=== PATIENT | female | born 1945 | race Hispanic/Latino ===

== ENCOUNTER 2019-12-06 16:57 | Emergency (ER) | payer MEDICARE ==
[~2019-12-06] VITALS: Ht 160 cm; Wt 63.5 kg
[~2019-12-06 16:57] MED LIST: BINOSTO70 MG; FENOFIBRATE134 MG; LOSARTAN POTAS100 MG; METFORMIN HCL500 MG; PRAVASTATIN SOD40 MG; TIROSINT75 MCG
[2019-12-06] MEDS ORDERED: ACETAMINOPHEN 325 MG TAB PO ONE (18:30)
[2019-12-06] MEDS ORDERED: ACETAMINOPHEN 325 MG TAB ONE (18:51)
--- NOTE | 2019-12-06 19:23 | Diagnostic Imaging Report ---
HIP 2VW LT W/PELVIS - HOPD - Multiple views HISTORY: ^FALL LEFT HIP PAIN ^[id number] ^[id number] COMPARISON: None available. FINDINGS: Bones: No acute displaced fracture. Osseous alignment is within normal limits. Joints: Degenerative changes are seen in the spine. Soft tissues: The soft tissues appear unremarkable. IMPRESSION: No acute radiographic abnormality. No fracture. Signed by: uEgene Chandler MD on 12/06/2019 7:21 PM
== END 2019-12-06 20:05 | disposition home or self-care (01) ==
LOC: FSED 16:57
DX: S70.02XA Contusion of left hip, initial encounter (principal); W01.198A Fall on same level from slipping, tripping and stumbling with subsequent striking against other object, initial encounter; Y93.E1 Activity, personal bathing and showering; Y92.002 Bathroom of unspecified non-institutional (private) residence as the place of occurrence of the external cause; I10 Essential (primary) hypertension; E11.65 Type 2 diabetes mellitus with hyperglycemia; Z79.84 Long term (current) use of oral hypoglycemic drugs
CPT/HCPCS: 99283

== ENCOUNTER 2020-10-09 01:19 | Inpatient (IN) | payer MEDICARE ==
[~2020-10-09] VITALS: Ht 149.9 cm; Wt 65.8 kg
[2020-10-09] MEDS ORDERED: ACETAMINOPHEN 325 MG TAB PO STA (01:27)
[2020-10-09] MEDS ORDERED: ACETAMINOPHEN 325 MG TAB ONE (01:40)
[2020-10-09] MEDS ORDERED: AZITHROMYCIN 500MG/NS 250 ML 250 ML IV STA (01:50)
[2020-10-09] MEDS ORDERED: DEXAMETHASONE 10MG/ML PF INJ IV STA (01:50)
[2020-10-09 02:16] LABS: BASOPHILS % 0.3 % (0.0-1.0); HEMATOCRIT 33.9 % (34.2-44.1); HEMOGLOBIN 11.2 g/dL (12.0-16.0); LYMPHOCYTES # (AUTO) 0.6 (1.0-3.2); LYMPHOCYTES % 15.5 % (18.0-39.1); MEAN CORPUSCULAR HEMOGLOBIN 27.6 pg (28-32); MEAN CORPUSCULAR VOLUME 83.5 fL (81-99); MONOCYTES # (AUTO) 0.3 (0.2-0.8); MONOCYTES % 6.8 % (4.4-11.3); NEUTROPHILS # (AUTO) 2.8 (2.1-6.9); NEUTROPHILS % 76.9 % (38.7-80.0); PLATELET COUNT 173 x10e3/uL (140-360); RED BLOOD COUNT 4.06 x10e6/uL (3.6-5.1); RED CELL DISTRIBUTION WIDTH 14.1 % (11.7-14.4)
[2020-10-09 02:33] LABS: ALANINE AMINOTRANSFERASE 29 IU/L (0-55); ALBUMIN 3.6 g/dL (3.5-5.0); ALBUMIN/GLOBULIN RATIO 1.2 (0.8-2.0); ALKALINE PHOSPHATASE 56 IU/L (40-150); ANION GAP 14.1 mmol/L (8-16); BLOOD UREA NITROGEN 8 mg/dL (7-26); BUN/CREATININE RATIO 12 (6-25); CALCIUM 8.8 mg/dL (8.4-10.2); CARBON DIOXIDE 23 mmol/L (22-29); CHLORIDE 103 mmol/L (98-107); CREATININE, SERUM 0.65 mg/dL (0.57-1.11); EST GLOMERULAR FILTRATION RATE > 60 ML/MIN (60-); GLUCOSE 151 mg/dL (74-118); POTASSIUM 4.1 mmol/L (3.5-5.1); SODIUM 136 mmol/L (136-145)
[2020-10-09 02:36] LABS: CREATINE KINASE 240 IU/L (29-168)
[2020-10-09] MEDS ORDERED: DEXTROSE 50% SYRINGE 50 ML IV PRN (08:00)
[2020-10-09] MEDS: ZINC SULFATE 220 MG CAP PO SCH (08:58)
[2020-10-09] MEDS: CEFTRIAXONE SOD 1 GM/NS 50 ML 50 ML IV SCH (08:58)
[2020-10-09] MEDS: DEXAMETHASONE SOD PHOS INJ 4 MG/ML VIAL IV SCH (08:58)
[2020-10-09] MEDS: CHOLECALCIFEROL 1,000 UNIT TAB PO SCH (08:58)
[2020-10-09] MEDS: LEVOTHYROXINE SODIUM 75 MCG TAB PO SCH (08:58)
[2020-10-09] MEDS: MAGNESIUM OXIDE 400 MG TAB PO SCH (08:58)
[2020-10-09] MEDS: ASCORBIC ACID 500 MG TAB PO SCH ×2 (08:58→18:52)
[2020-10-09] MEDS: ENOXAPARIN 30 MG/0.3 ML SYR SC SCH ×2 (08:58→21:08)
[2020-10-09] MEDS ORDERED: ALBUTEROL SULFATE HFA 8GM INHALATION AEROSOL INH PRN (09:00)
[2020-10-09] MEDS ORDERED: ACETAMINOPHEN 325 MG TAB PO PRN (09:00)
[2020-10-09] MEDS ORDERED: GUAIFENESIN/CODEINE 10 ML CUP PO PRN (09:00)
[2020-10-09] MEDS ORDERED: ONDANSETRON HCL 4 MG ORAL DISINTEGRATING TAB PO PRN (09:00)
[2020-10-09] MEDS ORDERED: REMDESIVIR 200MG/NS 100ML 200 MG in SODIUM CHLORIDE 0.9% 100 ML 100 ML IV ONE (10:00)
[2020-10-09] MEDS: AZITHROMYCIN 250MG/NS 100 ML 100 ML IV SCH (10:10)
[2020-10-09 11:13] LABS: CREATINE KINASE MB 2.5 ng/mL (0-5.0)
[2020-10-09] MEDS: INSULIN LISPRO 100 UNIT/1 ML 3ML VIAL SQ SCH ×3 (12:38→21:08)
[2020-10-09 17:00] VITALS: BP 128/69
[2020-10-09 19:17] LABS: CREATINE KINASE 355 IU/L (29-168)
[2020-10-09 19:38] VITALS: BP 143/72
[2020-10-09] MEDS ORDERED: ENALAPRIL MALEA20 MG (20:03)
[2020-10-09] MEDS ORDERED: GABAPENTIN100 MG PO (20:03)
[2020-10-09] MEDS ORDERED: NEXIUM40 MG PO (20:03)
[2020-10-09] MEDS ORDERED: ACTOS30 MG PO (20:03)
[2020-10-09] MEDS ORDERED: AMLODIPINE BESYL5 MG PO (20:03)
[2020-10-09] MEDS ORDERED: METFORMIN HCL500 MG PO (20:04)
[2020-10-09 21:44] VITALS: BP 143/72
[2020-10-10] VITALS (9 sets, daily range): BP systolic 123–141; BP diastolic 64–91
[2020-10-10] MEDS: GUAIFENESIN/CODEINE 10 ML CUP PO PRN (00:18)
[2020-10-10] MEDS: LEVOTHYROXINE SODIUM 75 MCG TAB PO SCH (05:08)
[2020-10-10 05:33] LABS: BASOPHILS % 0.2 % (0.0-1.0); HEMATOCRIT 34.6 % (34.2-44.1); HEMOGLOBIN 11.4 g/dL (12.0-16.0); LYMPHOCYTES # (AUTO) 0.8 (1.0-3.2); LYMPHOCYTES % 13.7 % (18.0-39.1); MEAN CORPUSCULAR HEMOGLOBIN 27.5 pg (28-32); MEAN CORPUSCULAR HGB CONC 32.9 g/dL (31-35); MEAN CORPUSCULAR VOLUME 83.4 fL (81-99); MONOCYTES # (AUTO) 0.5 (0.2-0.8); MONOCYTES % 7.8 % (4.4-11.3); NEUTROPHILS # (AUTO) 4.5 (2.1-6.9); NEUTROPHILS % 77.6 % (38.7-80.0); PLATELET COUNT 233 x10e3/uL (140-360); RED BLOOD COUNT 4.15 x10e6/uL (3.6-5.1)
[2020-10-10 05:52] LABS: ALANINE AMINOTRANSFERASE 26 IU/L (0-55); ALBUMIN 3.4 g/dL (3.5-5.0); ALBUMIN/GLOBULIN RATIO 0.9 (0.8-2.0); ALKALINE PHOSPHATASE 52 IU/L (40-150); ANION GAP 13.8 mmol/L (8-16); BLOOD UREA NITROGEN 16 mg/dL (7-26); BUN/CREATININE RATIO 23 (6-25); CALCIUM 9.2 mg/dL (8.4-10.2); CARBON DIOXIDE 24 mmol/L (22-29); CHLORIDE 104 mmol/L (98-107); CREATININE, SERUM 0.71 mg/dL (0.57-1.11); EST GLOMERULAR FILTRATION RATE > 60 ML/MIN (60-); GLUCOSE 299 mg/dL (74-118); POTASSIUM 3.8 mmol/L (3.5-5.1); SODIUM 138 mmol/L (136-145)
[2020-10-10 06:33] LABS: PHOSPHORUS 2.7 MG/DL (2.3-4.7)
[2020-10-10 06:54] LABS: THYROID STIMULATING HORMONE 1.555 uIU/mL (0.350-4.940)
[2020-10-10] MEDS: CEFTRIAXONE SOD 1 GM/NS 50 ML 50 ML IV SCH (08:43)
[2020-10-10] MEDS: ASCORBIC ACID 500 MG TAB PO SCH ×2 (08:44→16:13)
[2020-10-10] MEDS: MAGNESIUM OXIDE 400 MG TAB PO SCH (08:44)
[2020-10-10] MEDS: DEXAMETHASONE SOD PHOS INJ 4 MG/ML VIAL IV SCH (08:44)
[2020-10-10] MEDS: AZITHROMYCIN 250MG/NS 100 ML 100 ML IV SCH (08:44)
[2020-10-10] MEDS: CHOLECALCIFEROL 1,000 UNIT TAB PO SCH (08:44)
[2020-10-10] MEDS: ENOXAPARIN 30 MG/0.3 ML SYR SC SCH ×2 (08:45→21:02)
[2020-10-10] MEDS: ZINC SULFATE 220 MG CAP PO SCH (08:45)
[2020-10-10] MEDS: INSULIN LISPRO 100 UNIT/1 ML 3ML VIAL SQ SCH ×4 (08:46→21:33)
[2020-10-10] MEDS ORDERED: SODIUM CHLORIDE 0.9% 250ML 250 ML ONE (12:48)
[2020-10-10] MEDS: REMDESIVIR 100MG/NS 100ML 100 MG IV SCH (14:26)
[2020-10-10] MEDS: BENZONATATE 100 MG CAP PO PRN (21:27)
[2020-10-11] VITALS (8 sets, daily range): BP systolic 131–147; BP diastolic 59–84
[2020-10-11] MEDS: CEFTRIAXONE SOD 1 GM/NS 50 ML 50 ML IV SCH (08:15)
[2020-10-11] MEDS: DEXAMETHASONE SOD PHOS INJ 4 MG/ML VIAL IV SCH (08:15)
[2020-10-11] MEDS: CHOLECALCIFEROL 1,000 UNIT TAB PO SCH (08:16)
[2020-10-11] MEDS: ASCORBIC ACID 500 MG TAB PO SCH ×2 (08:16→17:33)
[2020-10-11] MEDS: ZINC SULFATE 220 MG CAP PO SCH (08:16)
[2020-10-11] MEDS: ENOXAPARIN 30 MG/0.3 ML SYR SC SCH ×2 (08:16→21:05)
[2020-10-11] MEDS: MAGNESIUM OXIDE 400 MG TAB PO SCH (08:16)
[2020-10-11] MEDS ORDERED: MAGNESIUM HYDROXIDE 30 ML UDC PO PRN (08:30)
[2020-10-11] MEDS ORDERED: SENNA-S TABLET PO PRN (08:30)
[2020-10-11] MEDS ORDERED: ONDANSETRON HCL INJ 2MG/ML 2ML 2 MG/ML VIAL IV PRN (08:30)
[2020-10-11] MEDS: INSULIN LISPRO 100 UNIT/1 ML 3ML VIAL SQ SCH ×4 (08:40→21:51)
[2020-10-11] MEDS ORDERED: INSULIN GLARGINE 100 UNITS/ML VIAL SQ ONE (09:00)
[2020-10-11] MEDS: ACETAMINOPHEN 325 MG TAB PO PRN (11:15)
[2020-10-11] MEDS: AZITHROMYCIN 250MG/NS 100 ML 100 ML IV SCH (11:40)
[2020-10-11] MEDS: REMDESIVIR 100MG/NS 100ML 100 MG IV SCH (14:33)
[2020-10-11] MEDS: LEVOTHYROXINE SODIUM 75 MCG TAB PO SCH (21:06)
[2020-10-11] MEDS: GUAIFENESIN/CODEINE 10 ML CUP PO PRN (21:06)
[2020-10-12] VITALS (8 sets, daily range): BP systolic 137–154; BP diastolic 64–73
[2020-10-12 05:12] LABS: BASOPHILS % 0.3 % (0.0-1.0); HEMATOCRIT 34.4 % (34.2-44.1); HEMOGLOBIN 11.5 g/dL (12.0-16.0); LYMPHOCYTES # (AUTO) 1.1 (1.0-3.2); LYMPHOCYTES % 16.4 % (18.0-39.1); MEAN CORPUSCULAR HEMOGLOBIN 27.8 pg (28-32); MEAN CORPUSCULAR HGB CONC 33.4 g/dL (31-35); MEAN CORPUSCULAR VOLUME 83.3 fL (81-99); MONOCYTES # (AUTO) 0.6 (0.2-0.8); MONOCYTES % 8.2 % (4.4-11.3); NEUTROPHILS # (AUTO) 4.7 (2.1-6.9); NEUTROPHILS % 69.1 % (38.7-80.0); PLATELET COUNT 302 x10e3/uL (140-360); RED BLOOD COUNT 4.13 x10e6/uL (3.6-5.1); RED CELL DISTRIBUTION WIDTH 13.6 % (11.7-14.4)
[2020-10-12 05:35] LABS: ANION GAP 13.5 mmol/L (8-16); BLOOD UREA NITROGEN 14 mg/dL (7-26); BUN/CREATININE RATIO 22 (6-25); CALCIUM 8.9 mg/dL (8.4-10.2); CARBON DIOXIDE 24 mmol/L (22-29); CHLORIDE 106 mmol/L (98-107); CREATININE, SERUM 0.65 mg/dL (0.57-1.11); EST GLOMERULAR FILTRATION RATE > 60 ML/MIN (60-); GLUCOSE 155 mg/dL (74-118); POTASSIUM 3.5 mmol/L (3.5-5.1); SODIUM 140 mmol/L (136-145)
[2020-10-12] MEDS: INSULIN GLARGINE 100 UNITS/ML VIAL SQ SCH (06:00)
[2020-10-12] MEDS: INSULIN LISPRO 100 UNIT/1 ML 3ML VIAL SQ SCH ×4 (07:30→21:42)
[2020-10-12] MEDS: CEFTRIAXONE SOD 1 GM/NS 50 ML 50 ML IV SCH (08:12)
[2020-10-12] MEDS: ENOXAPARIN 30 MG/0.3 ML SYR SC SCH (08:13)
[2020-10-12] MEDS: CHOLECALCIFEROL 1,000 UNIT TAB PO SCH (08:13)
[2020-10-12] MEDS: ZINC SULFATE 220 MG CAP PO SCH (08:13)
[2020-10-12] MEDS: AZITHROMYCIN 250MG/NS 100 ML 100 ML IV SCH (08:13)
[2020-10-12] MEDS: ASCORBIC ACID 500 MG TAB PO SCH ×2 (08:13→16:57)
[2020-10-12] MEDS: MAGNESIUM OXIDE 400 MG TAB PO SCH (08:13)
[2020-10-12] MEDS: DEXAMETHASONE SOD PHOS INJ 4 MG/ML VIAL IV SCH (08:13)
[2020-10-12] MEDS: ACETAMINOPHEN 325 MG TAB PO PRN (10:12)
[2020-10-12] MEDS: REMDESIVIR 100MG/NS 100ML 100 MG IV SCH (14:28)
[2020-10-12] MEDS: APIXAB 2.5 MG TABLET PO SCH (16:57)
[2020-10-12] MEDS: LEVOTHYROXINE SODIUM 75 MCG TAB PO SCH (19:52)
[2020-10-12] MEDS: BENZONATATE 100 MG CAP PO PRN (20:55)
[2020-10-12] MEDS: GUAIFENESIN/CODEINE 10 ML CUP PO PRN (20:55)
[2020-10-13] VITALS: BP 142/63
[2020-10-13 04:00] VITALS: BP 136/76
[2020-10-13] MEDS: LEVOTHYROXINE SODIUM 75 MCG TAB PO SCH (05:26)
[2020-10-13] MEDS: INSULIN GLARGINE 100 UNITS/ML VIAL SQ SCH (05:27)
[2020-10-13 05:46] LABS: BASOPHILS % 0.6 % (0.0-1.0); HEMATOCRIT 35.5 % (34.2-44.1); HEMOGLOBIN 11.7 g/dL (12.0-16.0); LYMPHOCYTES # (AUTO) 1.3 (1.0-3.2); LYMPHOCYTES % 17.6 % (18.0-39.1); MEAN CORPUSCULAR HEMOGLOBIN 27.6 pg (28-32); MEAN CORPUSCULAR VOLUME 83.7 fL (81-99); MONOCYTES # (AUTO) 0.6 (0.2-0.8); MONOCYTES % 8.1 % (4.4-11.3); NEUTROPHILS # (AUTO) 4.6 (2.1-6.9); NEUTROPHILS % 64.6 % (38.7-80.0); PLATELET COUNT 306 x10e3/uL (140-360); RED BLOOD COUNT 4.24 x10e6/uL (3.6-5.1); RED CELL DISTRIBUTION WIDTH 13.6 % (11.7-14.4)
[2020-10-13 06:19] LABS: ANION GAP 11.5 mmol/L (8-16); BLOOD UREA NITROGEN 14 mg/dL (7-26); BUN/CREATININE RATIO 22 (6-25); CALCIUM 8.5 mg/dL (8.4-10.2); CARBON DIOXIDE 25 mmol/L (22-29); CHLORIDE 105 mmol/L (98-107); CREATININE, SERUM 0.63 mg/dL (0.57-1.11); EST GLOMERULAR FILTRATION RATE > 60 ML/MIN (60-); GLUCOSE 158 mg/dL (74-118); POTASSIUM 3.5 mmol/L (3.5-5.1); SODIUM 138 mmol/L (136-145)
[2020-10-13 08:17] VITALS: BP 126/63
[2020-10-13 08:35] LABS: BAND NEUTROPHILS % (MANUAL) 1 %; LYMPHOCYTES % (MANUAL) 18 % (19-48); MONOCYTES % (MANUAL) 6 % (3.4-9.0); NEUTROPHILS % (MANUAL) 72 % (40-74); PROMYELOCYTES % (MANUAL) 3 % (0-0)
[2020-10-13 08:36] LABS: PLATELET ESTIMATE ADEQUATE; RBC MORPHOLOGY COMMENT NORMAL
[2020-10-13 08:37] LABS: PLATELET MORPHOLOGY COMMENT FEW LARGE
[2020-10-13] MEDS: ASCORBIC ACID 500 MG TAB PO SCH (08:40)
[2020-10-13] MEDS: MAGNESIUM OXIDE 400 MG TAB PO SCH (08:40)
[2020-10-13] MEDS: APIXAB 2.5 MG TABLET PO SCH (08:40)
[2020-10-13] MEDS: ZINC SULFATE 220 MG CAP PO SCH (08:40)
[2020-10-13] MEDS: CHOLECALCIFEROL 1,000 UNIT TAB PO SCH (08:40)
[2020-10-13] MEDS: CEFTRIAXONE SOD 1 GM/NS 50 ML 50 ML IV SCH (08:40)
[2020-10-13] MEDS: INSULIN LISPRO 100 UNIT/1 ML 3ML VIAL SQ SCH ×2 (08:42→12:19)
[2020-10-13 08:50] VITALS: BP 126/63
[2020-10-13] MEDS ORDERED: AZITHROMYCIN 250 MG TAB PO SCH (09:00)
[2020-10-13 11:48] VITALS: BP 150/72
[2020-10-13] MEDS ORDERED: DEXAMETHASONE 4 MG TAB PO SCH (17:00)
== END 2020-10-13 14:06 | disposition home or self-care (01) | DRG 177 ==
LOC: ER 01:23 → ERHOLD 02:41 → MED/SURG2 15:48
PROVIDERS: ADMIT Internal Medicine; ATTEND Internal Medicine
PROC: XW033E5 Introduction of Remdesivir Anti-infective into Peripheral Vein, Percutaneous Approach, New Technology Group 5 (ICD-10-PCS; principal; 2020-10-09)
PROC: 3E0333Z Introduction of Anti-inflammatory into Peripheral Vein, Percutaneous Approach (ICD-10-PCS; 2020-10-09)
DX: U07.1 COVID-19 (principal); J12.82 Pneumonia due to coronavirus disease 2019; I10 Essential (primary) hypertension; E11.9 Type 2 diabetes mellitus without complications; R09.02 Hypoxemia; E03.9 Hypothyroidism, unspecified; E66.9 Obesity, unspecified; R06.03 Acute respiratory distress; Z68.29 Body mass index [BMI] 29.0-29.9, adult; Z79.84 Long term (current) use of oral hypoglycemic drugs
CPT/HCPCS: 36415; 71045; 80048; 80053; 82550; 82553; 82607; 82746; 82948; 83036; 83880; 84100; 84443; 84484; 85025; 93306; 97139; 99251; 99284; J0456; J0696; J1100; J1650; J7050; U0002

== ENCOUNTER 2024-05-08 13:31 | Emergency (ER) | payer MEDICARE ==
[~2024-05-08] VITALS: Ht 149.9 cm; Wt 69.5 kg
[~2024-05-08 13:31] MED LIST changes: +ACTOS30 MG PO; +AMLODIPINE BESYL5 MG PO; +ENALAPRIL MALEA20 MG; +GABAPENTIN100 MG PO; +METFORMIN HCL500 MG PO; +NEXIUM40 MG PO
[2024-05-08] MEDS ORDERED: FEROSUL325 MG PO (13:51)
[2024-05-08] MEDS ORDERED: NATEGLINIDE60 MG (13:51)
[2024-05-08] MEDS ORDERED: ATORVASTATIN CA20 MG PO (13:51)
[2024-05-08] MEDS ORDERED: BENICAR20 MG PO (13:51)
[2024-05-08] MEDS ORDERED: ASPIRIN EC81 MG PO (13:59)
[2024-05-08] MEDS: ACETAMINOPHEN 325 MG TAB PO ONE (16:12)
[2024-05-08 16:32] VITALS: PULSE 65; RESP 16; TEMP 98.3; O2SAT 98
== END 2024-05-08 16:42 | disposition home or self-care (01) ==
LOC: FSED 13:40
DX: S00.83XA Contusion of other part of head, initial encounter (principal); W07.XXXA Fall from chair, initial encounter; Y92.89 Other specified places as the place of occurrence of the external cause; I10 Essential (primary) hypertension; E11.40 Type 2 diabetes mellitus with diabetic neuropathy, unspecified; E78.5 Hyperlipidemia, unspecified
CPT/HCPCS: 70450; 72125; 99283